=== PATIENT | male | born 1995 | race Two or more races ===

== ENCOUNTER 2021-03-26 14:32 | Emergency (ER) | payer OTHER ==
[~2021-03-26] VITALS: Ht 177.8 cm; Wt 72.6 kg
== END 2021-03-26 18:19 | disposition home or self-care (01) ==
LOC: ER 14:32
DX: S43.014A Anterior dislocation of right humerus, initial encounter (principal); X50.0XXA Overexertion from strenuous movement or load, initial encounter; Y93.18 Activity, surfing, windsurfing and boogie boarding; Y92.832 Beach as the place of occurrence of the external cause; Y99.8 Other external cause status